=== PATIENT | female | born 1990 | race African-American/Black ===

== ENCOUNTER 2017-10-16 00:30 | Emergency (ER) | payer SELFPAY, BC ==
[2017-10-16 02:59] LABS: URINE HCG POC HCG NEGATIVE (Negative)
[2017-10-16 03:01] LABS: INFLUENZA A PATIENT POSITIVE (NEGATIVE); INFLUENZA B PATIENT NEGATIVE (NEGATIVE); OBC FLU VALID
[2017-10-16] MEDS ORDERED: OSELTAMIVIR 75 MG CAPSULE PO ×2 (03:12)
[2017-10-16] MEDS: IBUPROFEN 800 MG TABLET. PO ×2 (03:13)
[2017-10-16] MEDS: OSELTAMIVIR 75 MG CAPSULE PO ×2 (03:13)
[2017-10-16 07:53] LABS: NEGATIVE OBC STREP NEG; POSITIVE OBC STREP POS
== END 2017-10-16 04:00 | disposition home or self-care (01) ==
LOC: ER 00:30
DX: J09.X2 Influenza due to identified novel influenza A virus with other respiratory manifestations (principal)
CPT/HCPCS: 81025; 87070; 87804; 87804-59; 87880; 99284